=== PATIENT | female | born 1960 | race Caucasian/White ===

== ENCOUNTER 2018-09-17 21:12 | Emergency (ER) | payer OTHER ==
[~2018-09-17] VITALS: Ht 167.6 cm; Wt 59.0 kg
[2018-09-17 21:17] VITALS: BP 134/71
--- NOTE | 2018-09-17 21:22 | NUR ---
Pt ambulated to bed 7 with vss. Providing urine. Addendum: 09/17/18 at 2127 by [facility] Pt ambulated to bed 1 with vss. Providing urine.
--- NOTE | 2018-09-17 21:40 | NUR ---
PT BIB FAMILY C/O ABDOMINAL PAIN. PT STATES THAT SEVERE BURNING PAIN AT 10/10 IN MIDDLE OF ABDOMEN THAT RADIATES TO LOWER BACK. PT STATED SHE CURRENTLY HAS NO PAIN AT THIS MOMENT, BUT THAT THE PAIN COMES AND GOES. ABDOMEN IS FLAT, NON-TENDER TO TOUCH, HAS BOWEL SOUNDS ACTIVE X4 QUADRANTS. PT LAST BM WAS DIARRHEA YESTERDAY. PT HAD GASTRIC BYPAS IN 2008 RX: TORADOL
[2018-09-17] MEDS ORDERED: NACL 0.9% 500 ML IV ONE (21:49)
[2018-09-17] MEDS ORDERED: ONDANSETRON 4 MG/2 ML VIAL IVP ONE (21:50)
[2018-09-17 22:22] LABS: EOSINOPHILS % (AUTO) 0.2 % (0.0-4.0); HEMOGLOBIN 14.8 g/dL (12.0-16.0); LYMPHOCYTES # (AUTO) 0.9 K/uL (2.5-16.5); LYMPHOCYTES % (AUTO) 7.4 % (20.5-51.1); NEUTROPHILS # (AUTO) 10.9 K/uL (1.8-7.7); RED BLOOD CELL COUNT(AUTO) 5.04 MIL/uL (4.20-5.40); RED CELL DISTRIBUTION WIDTH 13.1 % (11.6-13.7); WHITE BLOOD COUNT (AUTO) 12.2 K/uL (4.8-10.8)
[2018-09-17 22:28] LABS: BASOPHILS % (AUTO) 0.4 % (0.0-2.0); HEMATOCRIT 45.9 % (36-48); MEAN CORPUSCULAR HEMOGLOBIN 29 pg (27-31); MEAN CORPUSCULAR HGB CONC 32 g/dL (33-37); MONOCYTES # (AUTO) 0.4 K/uL (0.8-1.0); MONOCYTES % (AUTO) 2.9 % (1.7-9.3); PLATELET COUNT (AUTO) 271 K/uL (140-450)
[2018-09-17 22:43] LABS: ALBUMIN 3.7 g/dL (3.4-5.0); ANION GAP 11.1 (8-16); CREATININE 0.9 mg/dL (0.6-1.3); POTASSIUM 4.1 mmol/L (3.5-5.1); TOTAL BILIRUBIN 0.4 mg/dL (0.0-1.0)
[2018-09-17 22:54] LABS: NEUTROPHILS % (AUTO) 89.1 % (42.2-75.2)
[2018-09-17 23:34] VITALS: BP 121/53
--- NOTE | 2018-09-17 23:34 | NUR ---
Patient discharged with v/s stable. Written and verbal after care instructions given and explained. Patient verbalized understanding. Ambulatory with steady gait. All questions addressed prior to discharge. Advised to follow up with PMD.
== END 2018-09-17 23:34 | disposition home or self-care (01) ==
LOC: MED 21:12
DX: K56.600 Partial intestinal obstruction, unspecified as to cause (principal); Z98.84 Bariatric surgery status
CPT/HCPCS: 36415; 74022; 80053; 81002; 83690; 85025; 96374; 99284; J2405; J7030

== ENCOUNTER 2019-11-12 23:01 | Inpatient (IN) | payer OTHER ==
[~2019-11-12] VITALS: Ht 162.6 cm; Wt 59.0 kg
[2019-11-12 23:20] VITALS: BP 127/61
--- NOTE | 2019-11-12 23:20 | NUR ---
TO BED # 06 VIA WHEELCHAIR
--- NOTE | 2019-11-12 23:40 | NUR ---
59 Y/O FEMALE C/O SOB X TODAY. LUNG SOUNDS ARE RONCHI ALL THORUGHOUT AND CRACKLES IN BILAT LOWER LOBE, TACHYPNEA. PT WAS REFERRED FROM URGENT CARE AND WAS GIVEN ANTIBIOITC , BREATHING TX, AND STEROIDS BEFORE COMING HERE. SPO2 95% 2L NC. USES WHEELCHAIR IN ER DUE TO FEELING WEAK, LETHARGIC. VSS. NO USE OF ACCESSORY MUSCLE. PRODUCTIVE MOIST COUGH. DOESNT USE O2 AT HOME. HASNT ATE ALL DAY. A& O X4. ALLERGIES: MORPHINE (ITCHINESS) PMH: EMPHYSEMA, COPD, SMOKING ( 1 PACK X COUPLE DAYS.)
[2019-11-12] MEDS ORDERED: ACETAMINOPHEN 325 MG TAB PO ONE (23:50)
[2019-11-13] MEDS ORDERED: NACL 0.9% 1,000 ML IV ONE ×2 (00:02→02:20)
[2019-11-13] MEDS ORDERED: LEVOFLOXACIN 750 MG/D5W PREMIX 150 ML IV ONE (00:05)
[2019-11-13] MEDS ORDERED: AZITHROMYCIN 1,000 MG in DEXTROSE 5% 500 ML IV ONE (00:05)
[2019-11-13 00:42] LABS: HEMATOCRIT 44.2 % (36-48); HEMOGLOBIN 14.3 g/dL (12.0-16.0); MEAN CORPUSCULAR HEMOGLOBIN 30 pg (27-31); MEAN CORPUSCULAR HGB CONC 32 g/dL (33-37); MEAN CORPUSCULAR VOLUME 91.8 fL (80-94); PLATELET COUNT (AUTO) 203 K/uL (140-450); RED BLOOD CELL COUNT(AUTO) 4.81 MIL/uL (4.20-5.40); RED CELL DISTRIBUTION WIDTH 13.9 % (11.6-13.7); WHITE BLOOD COUNT (AUTO) 13.3 K/uL (4.8-10.8)
[2019-11-13 01:00] LABS: LYMPHOCYTES % (MANUAL) 5 % (20-46); MONOCYTES % (MANUAL) 6 % (5-12)
[2019-11-13 01:02] LABS: ALBUMIN 2.9 g/dL (3.4-5.0); ANION GAP 11.3 (8-16); CARBON DIOXIDE 30.8 mmol/L (21-32); CREATININE 0.9 mg/dL (0.6-1.3); POTASSIUM 4.1 mmol/L (3.5-5.1); TOTAL BILIRUBIN 0.5 mg/dL (0.0-1.0)
[2019-11-13 01:09] LABS: APPEARANCE,URINE CLEAR (CLEAR); BILIRUBIN,URINE NEGATIVE (NEGATIVE); BLOOD, URINE NEGATIVE (NEGATIVE); COLOR,URINE YELLOW (YELLOW); LEUKOCYTE ESTERASE ,URINE NEGATIVE (NEGATIVE); NITRITE, URINE NEGATIVE (NEGATIVE); PH,URINE 7.5 (5.0-9.0); UGLUCOSE NEGATIVE (NEGATIVE)
--- NOTE | 2019-11-13 01:30 | NUR ---
EKG PERFORMED AT BEDSIDE
[2019-11-13] MEDS ORDERED: AZITHROMYCIN 500 MG INJ VIAL IV ONE (02:30)
--- NOTE | 2019-11-13 04:15 | NUR ---
ADMITTED A 59F FROM ER.CAME BY ZEINAB DUE TO SOB, COUGH AND FEVER. ON TELE MONITOR-SR. ON O22L/NC. 98% O2 SAT. . AWAKE,ALERT AND ORIENTED X4. WITH NO C/O ANY DISCOMFORT NOTED. HAS IV ACCESS ON THE RT AC G#20, CLEAR AND PATENT. ZITHROMAX STILL INFUSING. ORIENTED TO HOSPITAL ROUTINES. CALL LIGHT PLACED WITHIN EASY REACH. BED ON LOW POSITION. SIDE RAILS UP X2. FREQ ROUNDS NEEDED. SKIN INTACT UPON ASSESSMENT. AFEBRILE AT THIS TIME. MRSA SPECIMEN COLLECTED AND WILL SEND TO LAB. WILL FOLLOW UP ADMIT ORDERS AND CONTINUE TO MONITOR PT.
[2019-11-13 04:20] VITALS: BP 104/57
--- NOTE | 2019-11-13 04:20 | NUR ---
APatient will be admitted to care of DR. DAMIAN. Admited to TELE. Will go to room 120A. Belongings list completed. Report to WILL MCDERMOTT.
[2019-11-13] MEDS ORDERED: BUPR1FIL2 SL (04:32)
--- NOTE | 2019-11-13 06:15 | NUR ---
MADE ROUNDS. PT ASLEEP. DAUGHTER AT BEDSIDE. NO S/S OF ANY SOB AND DISCOMFORT NOTED.
--- NOTE | 2019-11-13 07:10 | NUR ---
PAGED DR. DAMIAN FOR ADDITIONAL ORDER AND FOR LACTIC ACID 2.7. WILL ENDORSED TO AM NURSE AWAITING FOR CALL BACK.
--- NOTE | 2019-11-13 07:25 | NUR ---
ENDORSED PT IN STABLE CONDITION TO AM NURSE.
--- NOTE | 2019-11-13 07:26 | NUR ---
RECEIVED REPORT FROM CNA INSTRUCTOR NURSE AT BEDSIDE FOR CONTINUITY OF CARE. PATIENT RESTING COMFORTABLY WITH EYES CLOSED. FLACC-0. RESPIRATIONS EVEN AND UNLABORED ON 2L O2 VIA NC. NO S/S OF SOB OR DISTRESS NOTED. UPDATED BOARD. IV SITE INTACT, ASYMPTOMATIC, INFUSING IVF WELL. SAFETY PRECAUTIONS IN PLACE, CALL LIGHT WITHIN REACH, WILL CONTINUE TO MONITOR PATIENT.
[2019-11-13 08:00] VITALS: BP 104/58
[2019-11-13] MEDS ORDERED: ZOLPIDEM 5 MG TAB PO PRN (10:50)
[2019-11-13] MEDS ORDERED: LORazepam 0.5 MG TAB PO PRN (10:50)
--- NOTE | 2019-11-13 10:50 | NUR ---
DR. DAMIAN IN TO SEE PATIENT. INFORMED HIM ABOUT LACTIC ACID LEVELS, NO NEW ORDERS. WILL CONTINUE TO MONITOR PATIENT.
[2019-11-13 12:00] VITALS: BP 117/58
[2019-11-13] MEDS: methylPREDNISolone SS 40 MG/ML VIAL IVP SCH ×2 (12:14→21:26)
--- NOTE | 2019-11-13 12:14 | NUR ---
ORDERED MEDICATION GIVEN. PATIENT TOLERATING IT WELL. NO COMPLAINTS AT THIS TIME. PT DENIES SOB AND PAIN. WILL CONTINUE TO MONITOR PATIENT.
[2019-11-13] MEDS: ALBUTEROL SULFATE/IPRATROPIU 3 ML SOL IH SCH ×2 (13:08→19:36)
--- NOTE | 2019-11-13 15:15 | NUR ---
DAUGHTER IN TO SEE PATIENT.
[2019-11-13 16:00] VITALS: BP 105/57
--- NOTE | 2019-11-13 19:35 | NUR ---
REPORT GIVEN TO PRESCHOOL ASSISTANT NURSE AT BEDSIDE FOR CONTINUITY OF CARE. PATIENT IN STABLE CONDITION
--- NOTE | 2019-11-13 19:36 | NUR ---
RECEIVED PT IN STABLE CONDITION FROM AM NURSE. AWAKE, ALERT AND ORIENTED X4. ON TELE MONITOR. AWAKE,ALERT AND ORIENTED X4. ON O22L/NC. WITH OCCASIONAL COUGH. FAMILY AT BEDSIDE. NO C/O ANY PAIN NOTED. HAS IV ACCESS ON THE RT AC G#20. AMBULATORY TO THE BATHROOM. INSTRUCTED TO CALL FOR ASSISTANCE. BED ON LOW POSITION. SIDE RAILS UP X2. CALL LIGHT WITHIN REASY REACH. WILL CONTINUE TO MONITOR.
--- NOTE | 2019-11-13 19:49 | NUR ---
RECEIVED PATIENT ON 2L NASAL CANNULA, PULSE OX SAT 93%. SCHEDULED BREATHING TREATMENT ADMINISTERED. TOLERATED TX WELL WITHOUT ADVERSE SIDE EFFECTS. PT MADE AWARE OF MEDICATION FREQUENCY. NO ACUTE RESPIRATORY DISTRESS NOTED AT THIS TIME. WILL CONTINUE TO MONITOR.
[2019-11-13 20:00] VITALS: BP 122/60
--- NOTE | 2019-11-13 21:00 | NUR ---
DUE MEDS GIVEN . NO C/O ANY DISCOMFORT NOTED.
[2019-11-13] MEDS ORDERED: AZITHROMYCIN 500 MG in DEXTROSE 5% 250 ML IV SCH (22:00)
[2019-11-13] MEDS ORDERED: LEVOFLOXACIN 500 MG/D5W PREMIX 100 ML IV SCH (23:00)
--- NOTE | 2019-11-13 23:00 | NUR ---
MADE ROUNDS. PT SLEEPING. NO DISTRESS NOTED. ON O22L./NC.
[2019-11-14] VITALS: BP 103/50
--- NOTE | 2019-11-14 01:00 | NUR ---
PT ASSISTED TO THE BATHROOM. NO SOB NOTED.
[2019-11-14] MEDS: ALBUTEROL SULFATE/IPRATROPIU 3 ML SOL IH SCH ×2 (01:58→07:35)
--- NOTE | 2019-11-14 02:09 | NUR ---
SCHEDULED BREATHING TREATMENT ADMINISTERED. TOLERATED TX WELL WITHOUT ADVERSE SIDE EFFECTS. NO ACUTE RESPIRATORY DISTRESS NOTED AT THIS TIME. WILL CONTINUE TO MONITOR.
[2019-11-14 04:00] VITALS: BP 105/58
--- NOTE | 2019-11-14 04:00 | NUR ---
VITAL SIGNS TAKEN. STABLE. 93% O2 SAT WITH O22L.NC. NO C/O DISCOMFORT.
[2019-11-14] MEDS: methylPREDNISolone SS 40 MG/ML VIAL IVP SCH ×2 (05:05→13:00)
--- NOTE | 2019-11-14 06:00 | NUR ---
MADE ROUNDS. PT ASLEEP. NO DISTRESS NOTED.
[2019-11-14 06:23] LABS: HEMATOCRIT 42.9 % (36-48); HEMOGLOBIN 14.4 g/dL (12.0-16.0); MEAN CORPUSCULAR HEMOGLOBIN 30 pg (27-31); MEAN CORPUSCULAR HGB CONC 34 g/dL (33-37); MEAN CORPUSCULAR VOLUME 89.8 fL (80-94); PLATELET COUNT (AUTO) 210 K/uL (140-450); RED BLOOD CELL COUNT(AUTO) 4.78 MIL/uL (4.20-5.40); RED CELL DISTRIBUTION WIDTH 13.7 % (11.6-13.7); WHITE BLOOD COUNT (AUTO) 20.8 K/uL (4.8-10.8)
[2019-11-14 06:58] LABS: ALBUMIN 2.3 g/dL (3.4-5.0); ANION GAP 12.2 (8-16); CREATININE 0.8 mg/dL (0.6-1.3); POTASSIUM 4.2 mmol/L (3.5-5.1); TOTAL BILIRUBIN 0.4 mg/dL (0.0-1.0)
[2019-11-14 07:09] LABS: LYMPHOCYTES % (MANUAL) 9 % (20-46); MONOCYTES % (MANUAL) 9 % (5-12)
--- NOTE | 2019-11-14 07:15 | NUR ---
ENDORSED PT IN STABLE CONDITION TO AM NURSE.
--- NOTE | 2019-11-14 07:20 | NUR ---
RECEIVED BEDSIDE REPORT FROM NIGHTSHIFT NURSE. PT RESTING IN BED UPON ARRIVAL. ABLE TO MAKE NEEDS KNOWN. RESPIRATIONS EVEN AND UNLABORED WITH NO SOB OR RESPIRATORY DISTRESS. SKIN WARM AND DRY TO TOUCH. IV SITE IN RAC 20G IS CLEAN, DRY, AND INTACT. SAFETY MEASURES IN PLACE. WILL CONTINUE TO MONITOR
[2019-11-14 08:00] VITALS: BP 118/54
--- NOTE | 2019-11-14 08:30 | NUR ---
PAGED DR. DAMIAN ABOUT PT LACTIC ACID BEING 2.7. SAFETY MEASURES IN PLACE. WILL CONTINUE TO MONITOR.
--- NOTE | 2019-11-14 08:57 | NUR ---
PATIENT HAS BEEN SCREENED AND CATEGORIZED MODERATE NUTRITION RISK. PATIENT WILL BE SEEN WITHIN 3-5 DAYS OF ADMISSION. 11/15/19 11/17/[address]
[2019-11-14] MEDS ORDERED: NICOTINE TRANSD SYS 21 MG/24 HR PATCH TD SCH (09:00)
--- NOTE | 2019-11-14 09:18 | NUR ---
ADMINISTERED SCHED MED PRESCRIBED PER MD ORDER. PT TOLERATED WELL. MEDICATION EDUCATION PERFORMED. PT VERBALIZED UNDERSTANDING. SAFETY MEASURES IN PLACE. WILL CONTINUE TO MONITOR
--- NOTE | 2019-11-14 11:26 | NUR ---
Surgical Aides Teacher Note: Basic Screen: Yes High Risk DC Screen [place]: JOSÉ LUIS CUMMINGS Loyal Relationship: DAUGHTER Pre-Admission Living Arrangements: Lives with Other Prior ADL Independent Current Home Health Name/Tel: N/A Current DME/02 Name/Tel: N/A Current Hospice Name/Tel: N/A Current Dialysis Name/Tel: N/A Healthcare Decision Maker: Patient Advance Directive No - REFUSED Physician Orders for Life Sustaining Treatment Form No Patient/Family Have Educational Needs No Information Taught: Advance Directive Community Resources Person Taught: Patient Teaching Tools: Verbal Factors Affecting Learning: None Participation Level: Refused Evaluation: Verbalizes Understanding Needs Additional Education: No Discipline: Case Mgt/Social Svcs Tentative Discharge Plan/Destination: No Needs Identified Will require assistance post discharge: No Referred to Educational Director: No Tentative Discharge Plan Summary: Patient is a 59-year-old female admitted for pneumonia and sepsis. Patient has PMHX of COPD and suboxone use. Patient was admitted from home where she lives with her sno, daughter, and grandchildren. SW met with patient at bedside to verify demographics. Patient stated that she now lives at [address] [place] [address]. Patient reports no history of mental health and past history of norco abuse. SW offered substance abuse resources but patient refused.Patient's tentative discharge plan is to return home. No further needs identified. Signature: ZEINAB Clemente Date: Nov 14, 2019 Time: 11:26
--- NOTE | 2019-11-14 12:15 | NUR ---
PT IS AWARE OF DISCHARGE ORDER AND WOULD LIKE TO GO HOME BEFORE 3PM. SAFETY MEASURES IN PLACE. WILL CONTINUE TO MONITOR.
[2019-11-14 13:09] VITALS: BP 118/54
--- NOTE | 2019-11-14 14:15 | NUR ---
WENT OVER DC INSTRUCTIONS WITH PT. PT SIGNED APPROPRIATE DOCUMENTS. INSTRUCTED PT TO VISIT ED FOR ANY SIGNS OF DISTRESS. PT VERBALIZED UNDERSTANDING. PT REFUSED FLU VACCINE AND DOES NOT QUALIFY FOR PNA VACCINE. TELE MONITOR REMOVED, ID BAND REMOVED, AND INTACT IV CANNULA REMOVED. NO PRESCRIPTION OR CHANGE IN MEDS. PT GATHERED OWN BELONGINGS AND GOT DRESSED IN OWN CLOTHES. PT ESCORTED TO PRIVATE VEHICLE FOR HER TO RETURN HOME. PT IS STABLE.
--- NOTE | 2019-11-14 14:32 | NUR ---
DC PLANNING CALLED [facility] SPOKE WITH STORMY REGARDING THE PULMONARY FOLLOW UP , SINCE OFFICE IS CLOSED TODAY WILL F/U TOMORROW AND WILL CALL PATIENT .
== END 2019-11-14 14:18 | disposition home or self-care (01) | DRG 720 ==
LOC: MED 23:01 → MTU 11-13 03:26
PROVIDERS: ADMIT Internal Medicine Pulmonary Disease; ATTEND Internal Medicine Pulmonary Disease
DX: A41.9 Sepsis, unspecified organism (principal); J18.9 Pneumonia, unspecified organism; E44.0 Moderate protein-calorie malnutrition; J44.0 Chronic obstructive pulmonary disease with (acute) lower respiratory infection; J44.1 Chronic obstructive pulmonary disease with (acute) exacerbation; F17.200 Nicotine dependence, unspecified, uncomplicated; Z68.22 Body mass index [BMI] 22.0-22.9, adult; Z79.899 Other long term (current) drug therapy; Z90.710 Acquired absence of both cervix and uterus; Z98.84 Bariatric surgery status
CPT/HCPCS: 36415; 36600; 71045; 80053; 81003; 82803; 83605; 85025; 87081; 87086; 93005; 94640; 96361; 96365; 96366; 96367; 99291; J0456; J1956; J2920; J7030; J7060; J7620; Q0092

== ENCOUNTER 2021-05-07 20:03 | Emergency (ER) | payer OTHER ==
[~2021-05-07] VITALS: Ht 167.6 cm; Wt 54.4 kg
[~2021-05-07 20:03] MED LIST: BUPR1FIL2 SL
[2021-05-07 20:25] VITALS: BP 157/82
--- NOTE | 2021-05-07 20:25 | NUR ---
TO BED AMBULATORY
[2021-05-07 20:40] VITALS: BP 157/82
--- NOTE | 2021-05-07 23:44 | NUR ---
patient ambulated to the bathroom
--- NOTE | 2021-05-07 23:46 | NUR ---
patient to lobby
== END 2021-05-08 | disposition home or self-care (01) ==
LOC: MED 20:03
DX: S06.0X9A Concussion with loss of consciousness of unspecified duration, initial encounter (principal); J44.9 Chronic obstructive pulmonary disease, unspecified; Z79.899 Other long term (current) drug therapy; W01.198A Fall on same level from slipping, tripping and stumbling with subsequent striking against other object, initial encounter; Y93.89 Activity, other specified; Y92.89 Other specified places as the place of occurrence of the external cause; Y99.8 Other external cause status
CPT/HCPCS: 70450; 99284

== ENCOUNTER 2022-09-26 09:14 | Emergency (ER) | payer OTHER ==
[~2022-09-26] VITALS: Ht 170.2 cm; Wt 79.4 kg
--- NOTE | 2022-09-26 09:15 | NUR ---
PATIENT BIBA TO BED 8
[2022-09-26 09:19] VITALS: BP 95/72
[2022-09-26] MEDS ORDERED: cefTRIAXone 1,000 MG in DEXT 5% MINI-BAG PLUS 50 ML IV ONE (09:20)
--- NOTE | 2022-09-26 09:50 | NUR ---
RAD AT BEDSIDE
--- NOTE | 2022-09-26 09:58 | NUR ---
Patient being evaluated by physician at bedside.
[2022-09-26 09:59] LABS: BASOPHILS # (AUTO) 0.1 K/uL (0.00-0.22); BASOPHILS % (AUTO) 0.6 % (0.0-2.0); EOSINOPHILS % (AUTO) 0.5 % (0.0-4.0); HEMOGLOBIN 15.2 g/dL (12.0-16.0); LYMPHOCYTES # (AUTO) 0.5 K/uL (2.5-16.5); LYMPHOCYTES % (AUTO) 5.3 % (20.5-51.1); MEAN CORPUSCULAR HEMOGLOBIN 28 pg (27-31); MEAN CORPUSCULAR HGB CONC 32 g/dL (33-37); MEAN CORPUSCULAR VOLUME 87.9 fL (80-94); MONOCYTES # (AUTO) 0.6 K/uL (0.8-1.0); MONOCYTES % (AUTO) 5.9 % (1.7-9.3); NEUTROPHILS # (AUTO) 8.3 K/uL (1.8-7.7); NEUTROPHILS % (AUTO) 87.7 % (42.2-75.2); PLATELET COUNT (AUTO) 255 K/uL (140-450); RED BLOOD CELL COUNT(AUTO) 5.46 MIL/uL (4.20-5.40); WHITE BLOOD COUNT (AUTO) 9.5 K/uL (4.8-10.8)
[2022-09-26] MEDS ORDERED: cefTRIAXone 1,000 MG VIAL ONE (10:08)
[2022-09-26 10:11] LABS: ALBUMIN 3.3 g/dL (3.4-5.0); ANION GAP 7.9 (8-16); CARBON DIOXIDE 38.9 mmol/L (21-32); CREATININE 0.7 mg/dL (0.6-1.3); POTASSIUM 4.8 mmol/L (3.5-5.1); TOTAL BILIRUBIN 0.2 mg/dL (0.0-1.0)
--- NOTE | 2022-09-26 10:31 | NUR ---
PTS DAUGHTER AT BEDSIDE PER DR VALENZUELA.
[2022-09-26] MEDS ORDERED: ALBU0.0912 INH (10:58)
[2022-09-26] MEDS ORDERED: BUDE180P IH (10:58)
[2022-09-26] MEDS ORDERED: BUPR1FIL2 SL (10:58)
[2022-09-26] MEDS ORDERED: TENA50TA PO (10:58)
[2022-09-26] MEDS ORDERED: VITB12 PO (10:58)
[2022-09-26] MEDS ORDERED: VITA-16 PO (10:58)
[2022-09-26] MEDS ORDERED: OMEP20EC11 PO (10:58)
[2022-09-26] MEDS ORDERED: methylPREDNISolone SS 125 MG/2 ML VIAL IVP ONE (11:05)
[2022-09-26] MEDS ORDERED: PRED20TA5 PO (13:09)
--- NOTE | 2022-09-26 15:00 | NUR ---
PT MOVED TO CHAIR D
--- NOTE | 2022-09-26 15:05 | NUR ---
IV removed, catheter intact and site benign. Applied folded 4x4 gauze and tape to stop bleeding.
[2022-09-26 16:00] VITALS: BP 135/63
--- NOTE | 2022-09-26 16:00 | NUR ---
Patient discharged with v/s stable. Written and verbal after care instructions ABOUT HYPOXIA AND COPD given and explained. Patient alert, oriented and verbalized understanding of instructions. Ambulatory with steady gait. All questions addressed prior to discharge. ID band removed. Patient advised to follow up with PMD. Rx of PREDNISONE given. Patient educated on indication of medication including possible reaction and side effects. Opportunity to ask questions provided and answered. PT D/C WITH HOME OXYGEN. OKAY TO DISCHARGE PER DR VALENZUELA.
== END 2022-09-26 16:00 | disposition home or self-care (01) ==
LOC: MED 09:14
DX: J44.1 Chronic obstructive pulmonary disease with (acute) exacerbation (principal); Z20.822 Contact with and (suspected) exposure to COVID-19; R09.02 Hypoxemia; F17.200 Nicotine dependence, unspecified, uncomplicated; Z88.5 Allergy status to narcotic agent; Z79.899 Other long term (current) drug therapy
CPT/HCPCS: 36415; 71045; 80053; 83605; 83880; 84484; 85025; 87040; 87426; 87804; 93005; 96365; 96375; 99285; J0696; J2930

== ENCOUNTER 2022-09-27 12:54 | Inpatient (IN) | payer OTHER ==
[~2022-09-27] VITALS: Ht 160 cm; Wt 56.7 kg
[~2022-09-27 12:54] MED LIST changes: +ALBU0.0912 INH; +BUDE180P IH; +OMEP20EC11 PO; +PRED20TA5 PO; +TENA50TA PO; +VITA-16 PO; +VITB12 PO
[2022-09-27] MEDS ORDERED: NACL 0.9% 1,500 ML IV SCH (13:05)
[2022-09-27] MEDS ORDERED: MAG SULF 2000 MG/WATER PREMIX 50 ML IV ONE (13:05)
[2022-09-27] MEDS ORDERED: IPRATROPIUM 0.02% 0.5 MG/2.5 ML NEBU INH ONE (13:05)
[2022-09-27] MEDS ORDERED: ALBUTEROL 0.083% 2.5 MG/3 ML NEBU INH ONE (13:05)
[2022-09-27] MEDS ORDERED: cefTRIAXone 1,000 MG in DEXT 5% MINI-BAG PLUS 50 ML IV ONE (13:05)
[2022-09-27] MEDS ORDERED: methylPREDNISolone SS 125 MG/2 ML VIAL IVP ONE (13:05)
[2022-09-27 13:17] VITALS: BP 147/70
--- NOTE | 2022-09-27 13:17 | NUR ---
O2 DROPPED TO 58% RA DR CUMMINS AT BEDSIDE FOR EVAL, RT CALLED TO BEDSIDE
--- NOTE | 2022-09-27 13:36 | NUR ---
X-Ray at bedside.
[2022-09-27] MEDS ORDERED: cefTRIAXone 1,000 MG VIAL ONE (13:38)
[2022-09-27 13:48] LABS: APPEARANCE,URINE CLEAR (CLEAR); BILIRUBIN,URINE NEGATIVE (NEGATIVE); BLOOD, URINE NEGATIVE (NEGATIVE); COLOR,URINE YELLOW (YELLOW); LEUKOCYTE ESTERASE ,URINE 1+ (NEGATIVE); NITRITE, URINE NEGATIVE (NEGATIVE); UGLUCOSE NEGATIVE (NEGATIVE)
[2022-09-27 13:52] LABS: BASOPHILS % (AUTO) 0.2 % (0.0-2.0); HEMATOCRIT 49.7 % (36-48); HEMOGLOBIN 15.3 g/dL (12.0-16.0); LYMPHOCYTES # (AUTO) 0.5 K/uL (2.5-16.5); LYMPHOCYTES % (AUTO) 6.2 % (20.5-51.1); MEAN CORPUSCULAR HEMOGLOBIN 27 pg (27-31); MEAN CORPUSCULAR VOLUME 87.7 fL (80-94); MONOCYTES # (AUTO) 0.4 K/uL (0.8-1.0); MONOCYTES % (AUTO) 4.6 % (1.7-9.3); NEUTROPHILS # (AUTO) 7.7 K/uL (1.8-7.7); PLATELET COUNT (AUTO) 248 K/uL (140-450); RED BLOOD CELL COUNT(AUTO) 5.67 MIL/uL (4.20-5.40); RED CELL DISTRIBUTION WIDTH 15.4 % (11.6-13.7); WHITE BLOOD COUNT (AUTO) 8.6 K/uL (4.8-10.8)
[2022-09-27 13:53] LABS: ANION GAP 3.1 (8-16); CREATININE 0.7 mg/dL (0.6-1.3); POTASSIUM 5.8 mmol/L (3.5-5.1); TOTAL BILIRUBIN 0.3 mg/dL (0.0-1.0)
[2022-09-27 13:55] LABS: CARBON DIOXIDE 42.7 mmol/L (21-32)
--- NOTE | 2022-09-27 14:06 | NUR ---
62F BIBA from home with c/o of SOB today. Pt brought in by ambulance yesterday for SOB, pt refused admission to hospital, stated daughter had access to at home oxygen system. Pt reports running out of oxygen and became short of breath today. Per EMS pt was satting at 58% on 2LMP, received albuterol tx, satting at 86% on 2LMP after tx. Pt denies pain, cough, or any other symptoms. Pt changed into gown, placed on bedside monitor, Dr. Nuñez and RT made aware of pt status upon arrival.
[2022-09-27] MEDS ORDERED: LORazepam 1 MG TAB PO PRN (14:10)
[2022-09-27] MEDS ORDERED: ACETAMINOPHEN 325 MG TAB PO PRN (14:10)
[2022-09-27] MEDS ORDERED: HYDROcodone/APAP 5/325 MG 1 TAB TAB PO PRN (14:10)
[2022-09-27] MEDS ORDERED: ALBUTEROL SULFATE/IPRATROPIU 3 ML SOL IH PRN (14:10)
[2022-09-27] MEDS ORDERED: ONDANSETRON 4 MG/2 ML VIAL IVP PRN (14:10)
[2022-09-27 14:14] LABS: RBC,URINE 0-5 /HPF (0-5); TRICHOMONAS,URINE None Seen /HPF (None Seen); WBC,URINE 0-5 /HPF (0-5); YEAST,URINE None Seen /HPF (None Seen)
[2022-09-27 14:27] LABS: MEAN CORPUSCULAR HGB CONC 31 g/dL (33-37)
--- NOTE | 2022-09-27 19:40 | NUR ---
ASSUMED CARE OF PT . PT IN POSITION OF COMFORT. DENIES ANY NEEDS OR PAIN AT THIS TIME. PT IN POSITION OF COMFORT. VSS. AWAITING BED ASSIGNMENT. PT IS ADMITTED. WILL CONTINUE TO MONITOR.
[2022-09-27] MEDS: BUDESONIDE 0.5 MG/2 ML NEBU INH SCH (19:45)
--- NOTE | 2022-09-27 20:00 | NUR ---
Note poonam in EDM - 09/28/22 at 0556 by [email or web address] ASSUMED CARE OF PT AT THIS TIME. PT IN POSITION OF COMFORT. DENIES ANY PAIN AT THIS TIME. PROVIDED WATER AND CRACKERS TO PT. UPDATED PT ON POC WITH FULL RETURNED VERBAL UNDERSTANDING. VSS
[2022-09-27] MEDS: methylPREDNISolone SS 40 MG/ML VIAL IVP SCH (21:00)
[2022-09-27] MEDS ORDERED: BUDESONIDE IH SCH (21:00)
--- NOTE | 2022-09-27 22:40 | NUR ---
PT MEDICATED PER ORDERS AT THIS TIME.
[2022-09-27] MEDS: ZOLPIDEM 5 MG TAB PO PRN (22:46)
--- NOTE | 2022-09-28 01:00 | NUR ---
Patient appears to be resting comfortably in bed. Vital Signs within normal limits. Respirations even and unlabored.
--- NOTE | 2022-09-28 01:30 | NUR ---
Note poonam in ED - 09/28/22 at 0558 by [email or web address] SPOKE WITH JONATHAN BAEZA FOR PUBLIC SERVICE TO PT HOME. PT IS DISCHARGED AND UNABLE TO REMEMBER PHONE NUMBER BUT ADDRESS GIVEN. SPOKE WITH DISPATCHER WILL SEND OFFICER TO REACH [place], HER SON OR BROTHER TO PICK PT UP.
--- NOTE | 2022-09-28 03:00 | NUR ---
Patient appears to be resting comfortably in bed. Vital Signs within normal limits. Respirations even and unlabored.
[2022-09-28] MEDS: methylPREDNISolone SS 40 MG/ML VIAL IVP SCH ×3 (05:00→20:22)
--- NOTE | 2022-09-28 05:00 | NUR ---
Patient appears to be resting comfortably in bed. Vital Signs within normal limits. Respirations even and unlabored. Denies any needs or pain at this time. Bed assignment given. Will call report at 0615 per RN receiving.
--- NOTE | 2022-09-28 06:20 | NUR ---
ATTEMPTED TO GIVE REPORT. RN NEEDS 5 MORE MINUTES.
--- NOTE | 2022-09-28 06:35 | NUR ---
REPORT CALLED TO NICOLAS SOLIS WITH FULL RETURNED VERBAL UNDERSTANDING. PT GOING TO 106B
--- NOTE | 2022-09-28 06:40 | NUR ---
Patient will be admitted to [facility]. Admited to TELEMETRY. Will go to [facility] Belongings list completed. Report to NICOLAS SOLIS.
--- NOTE | 2022-09-28 06:55 | NUR ---
RECEIVED REPORT FROM ER NURSE PRISCILLA FOR CONTINUITY OF CARE. PATIENT IS A&O X4. PATIENT IS ON 6L NC, BREATHING IS NORMAL WITH SYMMETRICAL RISE AND FALL OF CHEST. IV IS A 20G LFA, RUNNING NO FLUIDS AT THIS TIME (SALINE LOCKED). ADMISSION VITALS WERE: BP 156/72, HR 70, TEMP 98.3, O2 97%, RR 18. PATIENT WAS ABLE TO AMBULATE TO THE BATHROOM, GATE WAS SLIGHTLY UNSTEADY. WILL ENDORSE CARE TO DAY SHIFT NURSE.
--- NOTE | 2022-09-28 07:30 | NUR ---
ENDORSED CARE OF PATIENT TO DAY SHIFT NURSE ADZE FOR CONTINUITY OF CARE. PATIENT IS STABLE.
[2022-09-28] MEDS: BUDESONIDE 0.5 MG/2 ML NEBU INH SCH ×2 (08:10→19:50)
[2022-09-28] MEDS ORDERED: BUPRENORPHINE HCL SL SCH (09:00)
[2022-09-28] MEDS ORDERED: [UNRECOGNIZED DRUG - OTHER] SL SCH (09:00)
[2022-09-28] MEDS ORDERED: NALOXONE HCL SL SCH (09:00)
--- NOTE | 2022-09-28 09:06 | NUR ---
PATIENT HAS BEEN SCREENED AND CATEGORIZED MODERATE NUTRITION RISK. PATIENT WILL BE SEEN WITHIN 5 DAYS OF ADMISSION. 09/27/22-10/02/[address]
[2022-09-28] MEDS: NICOTINE TRANSD SYS 14 MG/24 HR PATCH TD SCH (10:07)
[2022-09-28] MEDS: AZITHROMYCIN 250 MG TAB PO SCH (10:07)
[2022-09-28] MEDS: DOCUSATE SODIUM 100 MG GELCAP PO SCH (10:07)
[2022-09-28 14:29] LABS: BASOPHILS % (AUTO) 0.2 % (0.0-2.0); HEMATOCRIT 44.8 % (36-48); HEMOGLOBIN 13.9 g/dL (12.0-16.0); LYMPHOCYTES # (AUTO) 0.6 K/uL (2.5-16.5); LYMPHOCYTES % (AUTO) 5.1 % (20.5-51.1); MEAN CORPUSCULAR HEMOGLOBIN 27 pg (27-31); MEAN CORPUSCULAR HGB CONC 31 g/dL (33-37); MEAN CORPUSCULAR VOLUME 87.2 fL (80-94); MONOCYTES # (AUTO) 0.9 K/uL (0.8-1.0); MONOCYTES % (AUTO) 8.3 % (1.7-9.3); NEUTROPHILS # (AUTO) 9.5 K/uL (1.8-7.7); NEUTROPHILS % (AUTO) 86.4 % (42.2-75.2); PLATELET COUNT (AUTO) 247 K/uL (140-450); RED BLOOD CELL COUNT(AUTO) 5.13 MIL/uL (4.20-5.40); RED CELL DISTRIBUTION WIDTH 15.8 % (11.6-13.7)
[2022-09-28] MEDS: ALBUTEROL SULFATE/IPRATROPIU 3 ML SOL IH SCH ×3 (15:04→23:00)
[2022-09-28 16:00] VITALS: BP 136/67
--- NOTE | 2022-09-28 19:04 | NUR ---
PATIENT REMAINS STABLE THROUGHOUT SHIFT. CONTINUE ON O2 @4LPM VIA NC. TOLERATING WELL.
--- NOTE | 2022-09-28 19:49 | NUR ---
PATIENT AWAKE ALERT ORIENTED IN BED RESTING COMFORTABLY WITH O2 AT 4L NC TOLERATING WELL SATING 92%. NO SOB. RESPIRATION REGULAR NON LABORED. NO COMPLAINTS OF PAIN. HEAD OF BED ELEVATED. ALL SAFETY PRECAUTIONS ARE IN PLACE. CALL LIGHT WITHIN REACH. VISITOR AT BEDSIDE.
[2022-09-28 20:00] VITALS: BP 115/52
--- NOTE | 2022-09-28 20:01 | NUR ---
RECEIVED PT ON 4L NC. PT AWAKE ALERT WITH NO RESP DISTRESS. PT RECEIVED BOTH TX WITH NO ADVERSE REACTION. BS COARSE WITH EXP WHEEZE.
--- NOTE | 2022-09-28 20:22 | NUR ---
ALL SCHEDULED MEDICATIONS ADMINISTERED.
[2022-09-28] MEDS: ZOLPIDEM 5 MG TAB PO PRN (20:23)
[2022-09-28 21:01] LABS: BARBITURATE, URINE NEGATIVE ng/ml (NEG <=200); BENZODIAZEPINE, URINE POSITIVE ng/mL (NEG <=200); CANNABINOID, URINE NEGATIVE ng/mL (NEG <=50); COCAINE, URINE NEGATIVE ng/mL (NEG <=300); OPIATE, URINE NEGATIVE ng/mL (NEG <=2000); PHENCYCLIDINE SCREEN,URINE NEGATIVE ng/mL (NEG <=25)
[2022-09-29] VITALS: BP 119/59
[2022-09-29] MEDS: ALBUTEROL SULFATE/IPRATROPIU 3 ML SOL IH SCH ×6 (03:27→23:06)
[2022-09-29 04:00] VITALS: BP 125/51
[2022-09-29] MEDS: methylPREDNISolone SS 40 MG/ML VIAL IVP SCH ×3 (04:48→20:24)
--- NOTE | 2022-09-29 07:11 | NUR ---
GAVE REPORT TO NURSE ADZE FOR CONTINUITY OF CARE. PATIENT STABLE. ALL NEEDS MET DURING THE SHIFT.
[2022-09-29 07:23] LABS: BASOPHILS % (AUTO) 0.1 % (0.0-2.0); HEMATOCRIT 41.3 % (36-48); LYMPHOCYTES # (AUTO) 0.5 K/uL (2.5-16.5); MEAN CORPUSCULAR HEMOGLOBIN 27 pg (27-31); MEAN CORPUSCULAR HGB CONC 31 g/dL (33-37); MEAN CORPUSCULAR VOLUME 86.5 fL (80-94); MONOCYTES # (AUTO) 0.7 K/uL (0.8-1.0); MONOCYTES % (AUTO) 7.8 % (1.7-9.3); NEUTROPHILS # (AUTO) 7.6 K/uL (1.8-7.7); NEUTROPHILS % (AUTO) 86.1 % (42.2-75.2); PLATELET COUNT (AUTO) 232 K/uL (140-450); RED BLOOD CELL COUNT(AUTO) 4.78 MIL/uL (4.20-5.40); RED CELL DISTRIBUTION WIDTH 15.6 % (11.6-13.7); WHITE BLOOD COUNT (AUTO) 8.8 K/uL (4.8-10.8)
[2022-09-29 07:25] LABS: ALBUMIN 2.4 g/dL (3.4-5.0); ANION GAP 5.1 (8-16); CREATININE 0.5 mg/dL (0.6-1.3); POTASSIUM 4.6 mmol/L (3.5-5.1); TOTAL BILIRUBIN 0.2 mg/dL (0.0-1.0)
[2022-09-29] MEDS: BUDESONIDE 0.5 MG/2 ML NEBU INH SCH ×2 (07:36→18:49)
[2022-09-29 07:43] LABS: CARBON DIOXIDE 43.5 mmol/L (21-32)
[2022-09-29 08:00] VITALS: BP 132/60
[2022-09-29] MEDS: AZITHROMYCIN 250 MG TAB PO SCH (09:29)
[2022-09-29] MEDS: DOCUSATE SODIUM 100 MG GELCAP PO SCH (09:29)
[2022-09-29] MEDS: NICOTINE TRANSD SYS 14 MG/24 HR PATCH TD SCH (09:29)
[2022-09-29 12:00] VITALS: BP 127/87
[2022-09-29] MEDS ORDERED: PRED20TA5 PO (13:13)
[2022-09-29] MEDS ORDERED: AZIT250T11 PO (13:13)
[2022-09-29 16:00] VITALS: BP 127/87
--- NOTE | 2022-09-29 18:43 | NUR ---
PATIENT REMAINS STABLE THROUGHOUT SHIFT. DR. RAMOS SEEN AND EXAMINED THE PATIENT. DR. RAMOS MADE AWARE THAT PATIENT DESATS TO 84% ON RA AND NEED O2 CONTINOUSLY. PATIENT DISCHARGE IS HOLD UNTIL HOME O2 IS BEING ARRANGED. WILL FOLLOW UP TOMORROW WITH GYMNASTIC TEACHER.
[2022-09-29 20:00] VITALS: BP 125/68
[2022-09-29] MEDS: ZOLPIDEM 5 MG TAB PO PRN (20:23)
--- NOTE | 2022-09-29 20:23 | NUR ---
SCHEDULED MEDICATIONS DUE ADMINISTERED. WELL TOLERATED.
--- NOTE | 2022-09-29 23:50 | NUR ---
CHECKED ON PATIENT. PT SLEEPING ON HIGH FOWLERS POSITION WITH O2 AT 4L NC. NO S/S OF RESPIRATORY DISTRESS. RESPIRATION EVEN UNLABORED. SAFETY MEASURES ARE IN PLACE. CALL LIGHT WITHIN REACH.
[2022-09-30] VITALS: BP 120/58
[2022-09-30] MEDS: ALBUTEROL SULFATE/IPRATROPIU 3 ML SOL IH SCH ×6 (02:19→23:00)
[2022-09-30 04:00] VITALS: BP 116/68
[2022-09-30] MEDS: methylPREDNISolone SS 40 MG/ML VIAL IVP SCH ×3 (04:54→21:09)
--- NOTE | 2022-09-30 07:15 | NUR ---
GAVE REPORT TO NURSE ADZE FOR CONTINUITY OF CARE. PATIENT STABLE.
[2022-09-30 07:28] LABS: ALBUMIN 2.6 g/dL (3.4-5.0); ANION GAP 7.1 (8-16); CREATININE 0.5 mg/dL (0.6-1.3); POTASSIUM 4.8 mmol/L (3.5-5.1); TOTAL BILIRUBIN 0.3 mg/dL (0.0-1.0)
[2022-09-30 07:30] LABS: CARBON DIOXIDE 42.7 mmol/L (21-32)
[2022-09-30] MEDS: BUDESONIDE 0.5 MG/2 ML NEBU INH SCH ×2 (07:30→19:30)
[2022-09-30 07:32] LABS: BASOPHILS % (AUTO) 0.2 % (0.0-2.0); HEMATOCRIT 42.3 % (36-48); HEMOGLOBIN 13.4 g/dL (12.0-16.0); LYMPHOCYTES # (AUTO) 0.7 K/uL (2.5-16.5); LYMPHOCYTES % (AUTO) 7.9 % (20.5-51.1); MEAN CORPUSCULAR HEMOGLOBIN 27 pg (27-31); MEAN CORPUSCULAR HGB CONC 32 g/dL (33-37); MEAN CORPUSCULAR VOLUME 86.5 fL (80-94); MONOCYTES # (AUTO) 0.8 K/uL (0.8-1.0); MONOCYTES % (AUTO) 9.5 % (1.7-9.3); NEUTROPHILS # (AUTO) 7.1 K/uL (1.8-7.7); NEUTROPHILS % (AUTO) 82.4 % (42.2-75.2); PLATELET COUNT (AUTO) 245 K/uL (140-450); RED BLOOD CELL COUNT(AUTO) 4.89 MIL/uL (4.20-5.40); RED CELL DISTRIBUTION WIDTH 15.4 % (11.6-13.7); WHITE BLOOD COUNT (AUTO) 8.6 K/uL (4.8-10.8)
[2022-09-30 08:00] VITALS: BP 135/69
[2022-09-30] MEDS: DOCUSATE SODIUM 100 MG GELCAP PO SCH (08:42)
[2022-09-30] MEDS: AZITHROMYCIN 250 MG TAB PO SCH (08:42)
[2022-09-30] MEDS: NICOTINE TRANSD SYS 14 MG/24 HR PATCH TD SCH (08:43)
[2022-09-30 12:00] VITALS: BP 144/71
[2022-09-30 16:00] VITALS: BP 131/71
--- NOTE | 2022-09-30 16:35 | NUR ---
DC PLANNING SW MET WITH PT AT BEDSIDE TO COMPLETE ASSESSMENT. PT REPORTS RESIDING IN A MOBILE HOME WITH HER DAUGHTER AND GRANDDAUGHTER, AT [address] [facility]. [address] [address]. PT IDENTIFIED JOSÉ LUIS CUMMINGS, DAUGHTER, EMERGENCY CONTACT. PT DENIED AD IN PLACE AND ACCEPTED AD OFFERED BY ANNELISE. PT REPORTS MEETING WITH PCP REGULARLY, LAST VISIT; JUL 19'. PT REPORTS AN UPCOMING PCP APPT ON OCT 08. SW SPOKE TO PT ABOUT IMPORTANCE OF FOLLOW UP CARE, PT RECEPTIVE AND PROVIDED SW WITH PERMISSION TO SCHEDULE FOLLOW UP APPT WITH PCP. PT REPORTS MEDICATION COMPLIANCE AND REPORTS RECEIVING MEDICATION FROM [facility] ON [address] IN [place], WHEN NEEDED. PT DENIES MH HX. PT REPORTS SUBSTANCE USE HX, SUBSTANCE OF USE, NORCO. PT REPORTS BEING SOBER FOR 2 YRS. PT REPORTS SUBOXONE USE OF 1/4 PILL, 2X A DAY. PT REPORTS CIGARETTE USE AND REPORTS SHES WORKING WITH PCP IN CIGARETTE CESSATION. PT DENIES HX OF DIABETES, DIALYSIS, SNF, HH. PT REPORTS DC PLAN IS TO RETURN HOME WITH DAUGHTER PROVIDING TRANSPORTATION, WHEN STABLE. PT CURRENTLY WAITING ON OXYGEN TO BE DELIVERED TO HOSPITAL. Addendum: 09/30/22 at 1637 by Andrew CHRISTENSEN Amended: Links added. Addendum: 10/03/22 at 1024 by Andrew Garcia ANNELISE OUTREACHED TO PATIENTS PCP OFFICE AT [phone]. SPOKE WITH ISAMAR, APPT WAS SCHEDUL[facility] 10/06/22 [facility] 9[facility]00AM [facility] ANNELISE CALLED PATIENT, HOWEVER, NO ANSWER. ANNELISE LEFT MESSAGE WITH APPT DETAILS THAT INCLUDED DATE, TIME, ADDRESS, PHONE NUMBER AND
[2022-09-30 20:00] VITALS: BP 128/69
--- NOTE | 2022-09-30 20:05 | NUR ---
PATIENT AWAKE ALERT ORIENTED IN BED RESTING WITH O2 AT 2L NC SATING 92%. NO DISTRESS. BREATHING REGULAR NON LABORED. NO COMPLAINTS OF PAIN. IV ACCESS ON THE LEFT FOREARM SALINE LOCK. CALL LIGHT WITHIN REACH. SAFETY MEASURES IN PLACE. PT ABLE TO WALK TO THE RESTROOM.
[2022-09-30] MEDS: ZOLPIDEM 5 MG TAB PO PRN (21:09)
--- NOTE | 2022-09-30 21:09 | NUR ---
ADMINISTERED SCHEDULED MEDICATIONS. TOLERATED WELL.
[2022-10-01] VITALS: BP 127/72
--- NOTE | 2022-10-01 01:15 | NUR ---
PATIENT LEFT HOME AMA. EXPLAINED THE RISKS BUT STILL INSIST TO GO HOME AMA. Addendum: 10/01/22 at 0133 by Maile Gray RN RN WRONG PATIENT
[2022-10-01 04:00] VITALS: BP 120/55
[2022-10-01] MEDS: ALBUTEROL SULFATE/IPRATROPIU 3 ML SOL IH SCH ×4 (04:35→16:03)
[2022-10-01] MEDS: methylPREDNISolone SS 40 MG/ML VIAL IVP SCH ×2 (05:38→13:00)
--- NOTE | 2022-10-01 07:22 | NUR ---
ENDORSED PATIENT TO DAY SHIFT NURSE ADZE FOR CONTINUITY OF CARE. PATIENT STABLE.
[2022-10-01 07:37] LABS: ALBUMIN 2.5 g/dL (3.4-5.0); ANION GAP 4.1 (8-16); CREATININE 0.5 mg/dL (0.6-1.3); POTASSIUM 4.1 mmol/L (3.5-5.1); TOTAL BILIRUBIN 0.3 mg/dL (0.0-1.0)
[2022-10-01 07:44] LABS: BASOPHILS % (AUTO) 0.4 % (0.0-2.0); HEMOGLOBIN 13.5 g/dL (12.0-16.0); LYMPHOCYTES # (AUTO) 0.9 K/uL (2.5-16.5); LYMPHOCYTES % (AUTO) 9.8 % (20.5-51.1); MEAN CORPUSCULAR HEMOGLOBIN 28 pg (27-31); MEAN CORPUSCULAR HGB CONC 32 g/dL (33-37); MEAN CORPUSCULAR VOLUME 86.2 fL (80-94); MONOCYTES # (AUTO) 0.9 K/uL (0.8-1.0); MONOCYTES % (AUTO) 10.5 % (1.7-9.3); NEUTROPHILS # (AUTO) 6.9 K/uL (1.8-7.7); NEUTROPHILS % (AUTO) 79.3 % (42.2-75.2); PLATELET COUNT (AUTO) 235 K/uL (140-450); RED BLOOD CELL COUNT(AUTO) 4.88 MIL/uL (4.20-5.40); RED CELL DISTRIBUTION WIDTH 15.4 % (11.6-13.7); WHITE BLOOD COUNT (AUTO) 8.7 K/uL (4.8-10.8)
[2022-10-01] MEDS: BUDESONIDE 0.5 MG/2 ML NEBU INH SCH (07:50)
[2022-10-01] MEDS: AZITHROMYCIN 250 MG TAB PO SCH (09:12)
[2022-10-01] MEDS: DOCUSATE SODIUM 100 MG GELCAP PO SCH (09:12)
[2022-10-01] MEDS: NICOTINE TRANSD SYS 14 MG/24 HR PATCH TD SCH (09:12)
[2022-10-01 14:42] VITALS: BP 120/55
[2022-10-01] MEDS ORDERED: ALBU3SOL83 NEB (16:30)
--- NOTE | 2022-10-01 16:56 | NUR ---
PATIENT DISCHARGED HOME WITH HOME OXYGEN AND NEBULIZER. IV ACCESS REMOVED. INSTRUCTIONS GIVEN. ALL PERSONAL BELONGINGS SENT HOME WITH PATIENT.
== END 2022-10-01 16:40 | disposition home or self-care (01) | DRG 139 ==
LOC: MED 12:54 → MTU 14:09
PROVIDERS: ADMIT Hospitalist; ATTEND Hospitalist
DX: J18.9 Pneumonia, unspecified organism (principal); J96.01 Acute respiratory failure with hypoxia; E44.1 Mild protein-calorie malnutrition; J44.1 Chronic obstructive pulmonary disease with (acute) exacerbation; J44.0 Chronic obstructive pulmonary disease with (acute) lower respiratory infection; R65.10 Systemic inflammatory response syndrome (SIRS) of non-infectious origin without acute organ dysfunction; N18.30 Chronic kidney disease, stage 3 unspecified; Z20.822 Contact with and (suspected) exposure to COVID-19; F17.200 Nicotine dependence, unspecified, uncomplicated; G89.29 Other chronic pain; K58.9 Irritable bowel syndrome, unspecified; Z88.5 Allergy status to narcotic agent; Z68.22 Body mass index [BMI] 22.0-22.9, adult
CPT/HCPCS: 36415; 71045; 80053; 80305; 81001; 82803; 83605; 83880; 84484; 85025; 87040; 87086; 93005; 94640; 96365; 96367; 96375; 99291; J0696; J1644; J2920; J2930; J3475; J7613; J7626; J7644

== ENCOUNTER 2023-01-16 06:00 | Inpatient (IN) | payer OTHER ==
[~2023-01-16] VITALS: Ht 152.4 cm; Wt 56.7 kg
[~2023-01-16 06:00] MED LIST changes: +ALBU3SOL83 NEB; +AZIT250T11 PO
[2023-01-16 06:05] VITALS: BP 156/68
--- NOTE | 2023-01-16 06:07 | NUR ---
PT SABR[facility] ALS. TAKEN TO BED 11
--- NOTE | 2023-01-16 06:08 | NUR ---
Patient BIB by ALS from home. C/O abdominal pain x today. Patient reported, had lower abdominal pain after used suppository medication ~ 2-3 hours ETA, lower abdominal pain, 8/10, Per reported, given Zofran 4 mg IV en route. Hx COPD
--- NOTE | 2023-01-16 06:11 | NUR ---
Dr. Kamara examining patient.
[2023-01-16] MEDS ORDERED: ONDANSETRON 4 MG/2 ML VIAL IVP ONE (06:15)
[2023-01-16] MEDS ORDERED: NACL 0.9% 1,000 ML IV ONE (06:15)
[2023-01-16] MEDS ORDERED: MORPHINE SULFATE 4 MG/ML SYR IVP ONE ×2 (06:15→07:50)
--- NOTE | 2023-01-16 06:26 | NUR ---
3x attempt EKG and not success, Patient moved around and states " I am in pain, give me something". Dr. Kamara is aware.
--- NOTE | 2023-01-16 06:45 | NUR ---
Patient taken to CT scan via gurney.
--- NOTE | 2023-01-16 06:54 | NUR ---
PT RETURN FROM CT
--- NOTE | 2023-01-16 06:54 | NUR ---
Patient returned back from CT scan.
--- NOTE | 2023-01-16 07:14 | NUR ---
Report given to WILL Rivera and endorse care of patient.
[2023-01-16 07:20] LABS: BASOPHILS % (AUTO) 0.2 % (0.0-2.0); EOSINOPHILS # (AUTO) 0.1 K/uL (0-0.4); EOSINOPHILS % (AUTO) 0.6 % (0.0-4.0); HEMATOCRIT 46.1 % (36-48); LYMPHOCYTES # (AUTO) 0.8 K/uL (2.5-16.5); LYMPHOCYTES % (AUTO) 6.9 % (20.5-51.1); MEAN CORPUSCULAR HEMOGLOBIN 29 pg (27-31); MEAN CORPUSCULAR HGB CONC 33 g/dL (33-37); MEAN CORPUSCULAR VOLUME 88.7 fL (80-94); MONOCYTES # (AUTO) 0.3 K/uL (0.8-1.0); MONOCYTES % (AUTO) 2.7 % (1.7-9.3); NEUTROPHILS # (AUTO) 10.6 K/uL (1.8-7.7); NEUTROPHILS % (AUTO) 89.6 % (42.2-75.2); PLATELET COUNT (AUTO) 267 K/uL (140-450); RED CELL DISTRIBUTION WIDTH 15.9 % (11.6-13.7); WHITE BLOOD COUNT (AUTO) 11.9 K/uL (4.8-10.8)
[2023-01-16 07:37] LABS: ALBUMIN 3.9 g/dL (3.4-5.0); ANION GAP 9.8 (8-16); CARBON DIOXIDE 33.3 mmol/L (21-32); CREATININE 0.9 mg/dL (0.6-1.3); POTASSIUM 4.1 mmol/L (3.5-5.1); TOTAL BILIRUBIN 0.5 mg/dL (0.0-1.0)
--- NOTE | 2023-01-16 08:13 | NUR ---
ASSUMED PATIENT CARE, CONCUR WITH PRIOR NURSING ASSESSMENTS.
[2023-01-16 09:03] LABS: APPEARANCE,URINE SL CLOUDY (CLEAR); BILIRUBIN,URINE NEGATIVE (NEGATIVE); BLOOD, URINE NEGATIVE (NEGATIVE); COLOR,URINE YELLOW (YELLOW); LEUKOCYTE ESTERASE ,URINE NEGATIVE (NEGATIVE); NITRITE, URINE NEGATIVE (NEGATIVE); PH,URINE 7.5 (5.0-9.0); UGLUCOSE NEGATIVE (NEGATIVE)
[2023-01-16] MEDS ORDERED: ONDANSETRON 4 MG/2 ML VIAL IVP PRN ×2 (10:50→18:30)
[2023-01-16] MEDS ORDERED: LACTATED RINGERS 1,000 ML IV SCH (10:50)
[2023-01-16] MEDS ORDERED: ALBUTEROL 0.083% 2.5 MG/3 ML NEBU INH PRN (10:50)
[2023-01-16] MEDS ORDERED: ACETAMINOPHEN 325 MG TAB PO PRN (10:50)
--- NOTE | 2023-01-16 12:28 | NUR ---
DISPO AND MEDICAL DECISION MAKING, INPATIENT ADMISSION FOR FURTHER MANAGEMENT OF SBO. PATIENT CARE REPORT GIVEN TO JEAN CARLOS, CONTINUITY OF CARE ENDORSED ACCORDINGLY. PATIENT UPDATED OF PLAN OF CARE.
[2023-01-16 12:40] VITALS: BP 124/58
--- NOTE | 2023-01-16 12:40 | NUR ---
RECEIVED PT FROM ER FOR CONTINUITY OF CARE. RECEIVED REPORT FROM MAXIMILIAN SOLIS. TRANSPORTED VIA WHEELCHAIR. PLACED IN BED COMFORTABLY. INITIAL ASSESSMENT DONE. ALERT AND ORIENTED X 4. RESP. EVEN AND UNLABORED. ON CONT. 2L/NC. SKIN INTACT. IV SITE INTACT TO RFA 20G. REMAINS NPO. CONTINENT TO BOWEL AND BLADDER. MRSA SWAB COLLECTED. SEND TO LAB. CALL LIGHT KEPT WITHIN REACH. WILL MONITOR CLOSELY.
--- NOTE | 2023-01-16 12:41 | NUR ---
PER MAXIMILIAN SOLIS, PT PULLED OUT NGT. REATTEMPTED TO REINSERT BUT REFUSED.
--- NOTE | 2023-01-16 12:48 | NUR ---
Patient will be admitted to care of DR GONZALES. Admited to MED-SURG. Will go to room 120B. Belongings list completed. Report to JEAN CARLOS.
[2023-01-16 16:00] VITALS: BP 140/65
--- NOTE | 2023-01-16 16:55 | NUR ---
SEEN BY DR. ROLLINS.
--- NOTE | 2023-01-16 17:28 | NUR ---
PT OFF UNIT.FOR SURGERY. SHAKER REPAIRER BY DALIA SNAFORD RN. REMAINS STABLE.
[2023-01-16] MEDS ORDERED: LIDOCAINE/EPI MPF 1%1:200000 30 ML VIAL INJ ONE (17:43)
[2023-01-16] MEDS ORDERED: ceFAZolin 2,000 MG VIAL ONE (17:43)
[2023-01-16] MEDS ORDERED: BUPIVACAINE-MPF 0.25% 30 ML VIAL INJ ONE (17:44)
[2023-01-16] MEDS ORDERED: PROPOFOL 200 MG/20 ML VIAL IV ONE ×2 (18:00→18:34)
[2023-01-16] MEDS ORDERED: LABETALOL 100 MG/20 ML VIAL ONE ×2 (18:00→20:24)
[2023-01-16] MEDS ORDERED: ROCURONIUM 50 MG/5 ML VIAL IV ONE ×2 (18:00→18:34)
[2023-01-16] MEDS ORDERED: HYDROmorphone PFS 2 MG/ML SYR ONE ×3 (18:00→20:27)
[2023-01-16] MEDS ORDERED: ONDANSETRON 4 MG/2 ML VIAL ONE ×2 (18:00→18:34)
[2023-01-16] MEDS ORDERED: ACETYLCYSTEINE IV PER PHARMACY 1 EA MISC MC ONE (18:00)
[2023-01-16] MEDS ORDERED: DEXAMETHASONE 4 MG/ML VIAL ONE ×2 (18:00→18:34)
[2023-01-16] MEDS ORDERED: SUGAMMADEX SODIUM 200 MG/2 ML VIAL IV ONE ×2 (18:00→20:10)
[2023-01-16] MEDS ORDERED: ceFAZolin 1,000 MG VIAL ONE ×2 (18:02→21:14)
[2023-01-16] MEDS ORDERED: SUCCINYLCHOLINE CHLORIDE 200 MG/10 ML VIAL IVP ONE (18:34)
[2023-01-16] MEDS ORDERED: fentaNYL citrate 0.05 MG/ML VIAL ONE (18:46)
--- NOTE | 2023-01-16 19:00 | NUR ---
BEDSIDE REPORT GIVEN TO NIGHT NURSE VARGHESE FOR CONTINUITY OF CARE. CURRENTLY PT OFF UNIT FOR SURGERY.
--- NOTE | 2023-01-16 19:05 | NUR ---
RECEIVED REPORT FROM BURTON NURSE. PT CURRENTLY IN OR.
[2023-01-16] MEDS ORDERED: ACETAMINOPHEN 100 ML IV ONE (19:37)
[2023-01-16] MEDS: HYDROmorphone 1 MG/ML AMP IVP PRN ×4 (20:25→20:55)
[2023-01-16 21:00] VITALS: BP 136/67
[2023-01-16] MEDS: POTASSIUM CHL 20MEQ/D5-NS 1,000 ML IV SCH (21:00)
--- NOTE | 2023-01-16 21:00 | NUR ---
RECEIVED PT FROM OR. PATIENT IS AWAKE,ALERT AND ORIENTED. PAIN MEDICATION GIVEN PRIOR TO TRANSFER TO [facility]. NO ACUTE RESPIRATORY DISTRESS NOTED. ABDOMINAL DRESSING CDI. NGT RO THE RIGHT NARE IN PLACE, ATTACHED TO LOW INTERMITTENT SUCTION BY OR NURSE ORDERED. FLOWER CATHETER DRAINING YELLOW URINE BY GRAVITY. ON BEDREST WITH BILATERAL SCD'S ON, SAFETY PRECAUTIONS IN PLACE, CALL LIGHT GIVEN TO PT, INSTRUCTED TO CALL IF ASSISTANCE IS NEEDED, PT VERBALLY ACKNOWLEDGED. DAUGHTER AT THE BEDSIDE.
[2023-01-17] VITALS: BP 119/51
--- NOTE | 2023-01-17 | NUR ---
VITAL SIGNS TAKEN AND DOCUMENTED, VS WITHIN NORMAL LIMITS. PT ASLEEP. NO S/SX OF PAIN NOR DISCOMFORT. NOTED BROWNISH OUTPUT FROM NGT.
[2023-01-17] MEDS ORDERED: ceFAZolin 1,000 MG VIAL ONE (03:39)
[2023-01-17 04:00] VITALS: BP 128/59
[2023-01-17] MEDS: MORPHINE SULFATE 2 MG/ML SYR IVP PRN ×4 (05:09→21:05)
--- NOTE | 2023-01-17 05:09 | NUR ---
PATIENT COMPLAINED OF PAIN, MEDICATED ORDERED. REPOSITIONED AND MADE COMFORTABLE. CALL LIGHT PLACED WITHIN REACH.
--- NOTE | 2023-01-17 06:09 | NUR ---
RE-ASSESSED FOR PAIN, PT CURRENTLY ASLEEP. NO S/SX OF PAIN NOR DISCOMFORT.
--- NOTE | 2023-01-17 07:18 | NUR ---
RECEIVED REPORT FROM LOUIS KWONG DISCUSSED. PT IS ASLEEP IN BED ON 2LNC WITH CHEST RISING AND FALLING CONNECTED TO PULSE OX SHOWING 94%. PT HAS A NG TUBE CONNECTED TO LOW INTERMITTENT SUCTION, MINIMAL OUTPUT NOTED. PT HAS FLOWER DRAINING CLEAR YELLOW URINE. PT CONNECTED TO SCDS. PT S/P EXPLORATORY LAP WITH LARGE ABD BANDAGE. PT ON TELE MONITOR. ALL SAFETY MEASURES IN PLACE, CALL LIGHT WITHIN REACH.
--- NOTE | 2023-01-17 07:47 | NUR ---
RECEIVED REPORT FROM PPAP COORDINATOR NURSE. POC DISCUSSED. PT CURRENTLY RESTING WITH CHEST RISING AND FALLING. PT RECEIVING 2L OXYGEN NASAL CANULA. NO ACUTE S/S OF DISTRESS. ALL SAFETY MEASURES IN PLACE. CALL LIGHT WITHIN REACH.
[2023-01-17 07:49] LABS: BASOPHILS # (AUTO) 0.1 K/uL (0.00-0.22); BASOPHILS % (AUTO) 0.4 % (0.0-2.0); HEMATOCRIT 38.9 % (36-48); HEMOGLOBIN 12.8 g/dL (12.0-16.0); LYMPHOCYTES # (AUTO) 0.9 K/uL (2.5-16.5); LYMPHOCYTES % (AUTO) 6.6 % (20.5-51.1); MEAN CORPUSCULAR HEMOGLOBIN 29 pg (27-31); MEAN CORPUSCULAR HGB CONC 33 g/dL (33-37); MONOCYTES % (AUTO) 7.3 % (1.7-9.3); NEUTROPHILS # (AUTO) 11.9 K/uL (1.8-7.7); NEUTROPHILS % (AUTO) 85.7 % (42.2-75.2); PLATELET COUNT (AUTO) 242 K/uL (140-450); RED BLOOD CELL COUNT(AUTO) 4.37 MIL/uL (4.20-5.40); RED CELL DISTRIBUTION WIDTH 15.9 % (11.6-13.7); WHITE BLOOD COUNT (AUTO) 13.8 K/uL (4.8-10.8)
[2023-01-17 08:00] VITALS: BP 136/67
[2023-01-17 08:08] LABS: ALBUMIN 2.6 g/dL (3.4-5.0); ANION GAP 7.9 (8-16); CARBON DIOXIDE 31.1 mmol/L (21-32); CREATININE 0.7 mg/dL (0.6-1.3); MAGNESIUM 1.5 mg/dL (1.8-2.4); TOTAL BILIRUBIN 0.3 mg/dL (0.0-1.0)
--- NOTE | 2023-01-17 09:43 | NUR ---
PAGE DR GONZALES REGARDING PT REQUEST TO REMOVE NG TUBE AND NEW DIET ORDER.
[2023-01-17] MEDS: ENOXAPARIN 40 MG/0.4 ML SYR SUBQ SCH (09:53)
[2023-01-17] MEDS ORDERED: LORazepam 2 MG/ML VIAL IM/IVP PRN (10:10)
[2023-01-17] MEDS: POTASSIUM CHL 20MEQ/D5-NS 1,000 ML IV SCH ×2 (10:16→23:10)
[2023-01-17] MEDS: LORazepam 2 MG/ML VIAL IM/IVP PRN ×3 (10:19→23:19)
--- NOTE | 2023-01-17 10:19 | NUR ---
PER DR ROLLINS, PT WILL KEEP THE NGT TO LOW INTERMITTENT AND NPO TILL 01/18/22 AM. PT REPORTS SEVERE ANXIETY WITH NG TUBE IN NOSE, MD ORDERED PRN ATIVAN. PT TOLERATED ADMINISTRATION
[2023-01-17 12:00] VITALS: BP 149/70
--- NOTE | 2023-01-17 12:28 | NUR ---
PRN PAIN MEDICATION ADMINISTERED PER MD ORDER, BP 139/73 HEART RATE 88
--- NOTE | 2023-01-17 14:40 | NUR ---
PT ENDORSED TO TIM RN FOR CONTINUITY OF CARE IN STABLE CONDITION, POC DISCUSSED. ALL QUESTIONS ANSWERED. PT ASLEEP IN BED CONNECTED TO PULSE OX AND TELE MONITOR. NO ACUTE S/S OF DISTRESS.
--- NOTE | 2023-01-17 14:41 | NUR ---
RECEIVED PATIENT FROM NURSE OF SAME SHIFT. PATIENT SEEN AWAKE. CARE AND MONITORING RESUMED
[2023-01-17 16:00] VITALS: BP 148/73
[2023-01-17] MEDS ORDERED: MAG SULF 2000 MG/WATER PREMIX 50 ML IV ONE (16:55)
--- NOTE | 2023-01-17 19:30 | NUR ---
ENDORSED PATIENT TO PM NURSE FOR CONTINUATION OF CARE.
--- NOTE | 2023-01-17 19:31 | NUR ---
RECEIVED PT FROM MORNING SHIFT NURSE. PT IS AOX4, AMBULATORY WITH ASSIST, AMBLE VERBALIZE NEEDS AND ABLE TO FOLLOW COMMANDS. PT HAS 2L NC, NGT, FLOWER CATHETER AND ON NPO DIET. PT HAS IV ON RIGHT FOREARM GAUGE 20 RUNNING WITH MAG SULFATE AT 25ML/HR. PT HAS LARGE SURGICAL WOUND ON ABDOMEN. PT DENIES PAIN AT THIS TIME. NO S/S OF RESPIRATORY DISTRESS NOTED. ALL SAFETY MEASURES IMPLEMENTED. BED IN LOW POSITION, BED WHEELS ON LOCK AND CALL LIGHT WITHIN REACH.
[2023-01-17 20:00] VITALS: BP 152/79
--- NOTE | 2023-01-17 21:05 | NUR ---
PRRN PAIN MEDICATION WAS GIVEN TO PT DUE TO ABDOMINAL PAIN WITH PAIN SCALE OF 6/10. ALL SAFETY MEASURES IMPLEMENTED. BED IN LOW POSITION, BED WHEELS ON LOCK AND CALL LIGHT WITHIN REACH.
--- NOTE | 2023-01-17 23:19 | NUR ---
PT WAS GIVEN ATIVAN DUE TO AGITATION. ALL SAFETY MEASURES IMPLEMENTED. BED IN LOW POSITION, BED WHEELS ON LOCK AND CALL LIGHT WITHIN REACH.
[2023-01-18] VITALS: BP 156/68
--- NOTE | 2023-01-18 02:00 | NUR ---
PT IS ON SLEEP. CHEST RISE AND FALL SYMMETRICALLY NOTED. RESPIRATION IS EVEN AND UNLABORED. ALL SAFETY MEASURES IMPLEMENTED. LAN DIN LOW POSITION, BED WHEELS ON LOCK AND CALL LIGHT WITHIN REACH.
[2023-01-18] MEDS: MORPHINE SULFATE 2 MG/ML SYR IVP PRN ×4 (02:43→21:01)
--- NOTE | 2023-01-18 03:00 | NUR ---
PT WAS GIVEN PRN PAIN MEDICATION BY VARGHESE CM,SO DUE TO BACK PAIN AT 0243. RN IS ON BREAK THAT TIME.
[2023-01-18 04:00] VITALS: BP 148/76
[2023-01-18] MEDS: LORazepam 2 MG/ML VIAL IM/IVP PRN (05:25)
--- NOTE | 2023-01-18 05:25 | NUR ---
PT WAS GIVEN ATIVAN DUE TO AGITATION. ALL SAFETY MEASURES IMPLEMENTED. BED IN LOW POSITION, BED WHEELS ON LOCK AND CALL LIGHT WITHIN REACH.
[2023-01-18] MEDS: POTASSIUM CHL 20MEQ/D5-NS 1,000 ML IV SCH ×2 (06:27→12:30)
[2023-01-18 06:32] LABS: BASOPHILS % (AUTO) 0.4 % (0.0-2.0); EOSINOPHILS # (AUTO) 0.1 K/uL (0-0.4); EOSINOPHILS % (AUTO) 0.5 % (0.0-4.0); LYMPHOCYTES # (AUTO) 1.1 K/uL (2.5-16.5); LYMPHOCYTES % (AUTO) 10.8 % (20.5-51.1); MEAN CORPUSCULAR HEMOGLOBIN 29 pg (27-31); MEAN CORPUSCULAR HGB CONC 34 g/dL (33-37); MONOCYTES # (AUTO) 0.9 K/uL (0.8-1.0); MONOCYTES % (AUTO) 8.1 % (1.7-9.3); NEUTROPHILS # (AUTO) 8.5 K/uL (1.8-7.7); NEUTROPHILS % (AUTO) 80.2 % (42.2-75.2); PLATELET COUNT (AUTO) 216 K/uL (140-450); RED BLOOD CELL COUNT(AUTO) 4.43 MIL/uL (4.20-5.40); RED CELL DISTRIBUTION WIDTH 14.8 % (11.6-13.7); WHITE BLOOD COUNT (AUTO) 10.6 K/uL (4.8-10.8)
[2023-01-18 07:02] LABS: ALBUMIN 2.7 g/dL (3.4-5.0); ANION GAP 7.9 (8-16); CARBON DIOXIDE 32.8 mmol/L (21-32); CREATININE 0.6 mg/dL (0.6-1.3); POTASSIUM 3.7 mmol/L (3.5-5.1); TOTAL BILIRUBIN 0.5 mg/dL (0.0-1.0)
--- NOTE | 2023-01-18 07:18 | NUR ---
PT IS STABLE. ENDORSED PT TO MORNING SHIFT NURSE FOR CONTINUITY OF CARE.
--- NOTE | 2023-01-18 07:20 | NUR ---
RECEIVED PT FROM PM NURSE FOR CONTINUATION OF CARE.
[2023-01-18 08:00] VITALS: BP 157/81
--- NOTE | 2023-01-18 08:44 | NUR ---
PATIENT HAS BEEN SCREENED AND CATEGORIZED MODERATE NUTRITION RISK. PATIENT WILL BE SEEN WITHIN 3-5 DAYS OF ADMISSION. 01/16/23-01/21/[address]
[2023-01-18] MEDS: ENOXAPARIN 40 MG/0.4 ML SYR SUBQ SCH (09:34)
[2023-01-18 12:00] VITALS: BP 155/85
[2023-01-18 16:00] VITALS: BP 148/73
--- NOTE | 2023-01-18 16:26 | NUR ---
01/18/23 RD INITIAL ASSESSMENT COMPLETED.PLEASE REFER TO NUTRITION ASSESSMENT UNDER CARE ACTIVITY FOR ESTIMATED NUTRITIONAL NEEDS. 1.CONTINUE CLEAR LIQUID DIET TOLERATED. WHEN/IF MEDICALLY APPROPRIATE, RECOMMEND GRADUALLY ADVANCING TO REGULAR DIET. 2.RECOMMEND PROSOURCE BID TO PROMOTE WOUND HEALING. 3.MONITOR PO INTAKE 4.RD TO FOLLOW-UP 3-5 DAYS, MODERATE RISK [address] R[address]
--- NOTE | 2023-01-18 19:20 | NUR ---
ENDORSED PATIENT TO PM NRSE FOR CONTINUATION OF CARE.
--- NOTE | 2023-01-18 19:30 | NUR ---
RECEIVED PATIENT LYING ON THE BED, FAMILY AT BEDSIDE, IN NO ACUTE DISTRESS, PATIENT ON 2LPM NC, IV SITE ON RIGHT FOREARM G20, PATENT AND INTACT. CALL LIGHT WITHIN REACH.
[2023-01-18 20:00] VITALS: BP 139/74
--- NOTE | 2023-01-18 21:01 | NUR ---
PATIENT C/O 7/10 PAIN ON MID ABDOMEN SURGICAL INCISION SITE, GIVEN PRN MORPHINE, BP 139/74. SURGICAL INCISION HAS 25 INTACT SAMUEL, WILL CONTINUE TO MONITOR THE PATIENT.
--- NOTE | 2023-01-18 22:01 | NUR ---
CHECKED ON PATIENT, PATIENT IS ASLEEP, BREATHING EVEN AND NON LABORED. CALL LIGHT WITHIN REACH.
[2023-01-19] VITALS: BP 134/75
[2023-01-19] MEDS: POTASSIUM CHL 20MEQ/D5-NS 1,000 ML IV SCH ×3 (00:56→19:20)
[2023-01-19] MEDS: MORPHINE SULFATE 2 MG/ML SYR IVP PRN ×2 (03:44→10:35)
--- NOTE | 2023-01-19 03:44 | NUR ---
PRN MORPHINE GIVEN ORDERED, PATIENT C/O 6/10 PAIN ON MID ABDOMEN SURGICAL INCISION, BP 152/77MMHG. ALL SAFETY MEASURES IN PLACE.
[2023-01-19 04:00] VITALS: BP 152/77
[2023-01-19 06:31] LABS: BASOPHILS # (AUTO) 0.1 K/uL (0.00-0.22); BASOPHILS % (AUTO) 0.6 % (0.0-2.0); EOSINOPHILS # (AUTO) 0.2 K/uL (0-0.4); EOSINOPHILS % (AUTO) 1.9 % (0.0-4.0); HEMATOCRIT 36.6 % (36-48); HEMOGLOBIN 12.2 g/dL (12.0-16.0); LYMPHOCYTES # (AUTO) 1.1 K/uL (2.5-16.5); LYMPHOCYTES % (AUTO) 12.4 % (20.5-51.1); MEAN CORPUSCULAR HEMOGLOBIN 29 pg (27-31); MEAN CORPUSCULAR HGB CONC 33 g/dL (33-37); MEAN CORPUSCULAR VOLUME 88.1 fL (80-94); MONOCYTES # (AUTO) 0.9 K/uL (0.8-1.0); MONOCYTES % (AUTO) 9.8 % (1.7-9.3); NEUTROPHILS # (AUTO) 6.9 K/uL (1.8-7.7); NEUTROPHILS % (AUTO) 75.3 % (42.2-75.2); PLATELET COUNT (AUTO) 232 K/uL (140-450); RED BLOOD CELL COUNT(AUTO) 4.15 MIL/uL (4.20-5.40); RED CELL DISTRIBUTION WIDTH 13.8 % (11.6-13.7); WHITE BLOOD COUNT (AUTO) 9.1 K/uL (4.8-10.8)
--- NOTE | 2023-01-19 07:25 | NUR ---
ENDORSED PATIENT TO DAY NURSE FOR CONTINUITY OF CARE. PATIENT IN STABLE CONDITION.
--- NOTE | 2023-01-19 07:26 | NUR ---
RECEIVED PT FROM EMERGENCY VEHICLE DRIVER NURSE FOR CONTINUITY OF CARE. PT SLEEPING, VISIBLE CHEST RISE/FALL. RESPIRATIONS EVEN AND UNLABORED ON 2L O2 VIA NC. IV ON R F/A 20G. SKIN WARM AND DRY. NO DISTRESS NOTED. CALL LIGHT WITHIN REACH. ALL SAFETY PRECAUTIONS IN PLACE.
[2023-01-19 08:00] VITALS: BP 126/64
[2023-01-19] MEDS: ENOXAPARIN 40 MG/0.4 ML SYR SUBQ SCH (08:17)
--- NOTE | 2023-01-19 09:50 | NUR ---
S/P EX LAP + LYSIS ADHESIONS, REPAIR LOWER ABDOMINAL/SUPRAPUBIC VENTRAL HERNIAS BY . MID ABD. SURGICAL WOUND 25 SAMUEL DRY CLEAN ,NO S/S OF WOUND DEHISCENCE. DRY COMPOSITE DRESSING AND ABD BINDER APPLIED. PT. OOB AMBULATE TO BR. AAX4. POC DISCUSSED. PT VERBALIZES UNDERSTANDING. POC DISCUSSED WITH PRIMARY NURSE KULDEEP.
[2023-01-19 10:20] LABS: ANION GAP 13.3 (8-16); CARBON DIOXIDE 28.4 mmol/L (21-32); CREATININE 0.6 mg/dL (0.6-1.3); POTASSIUM 3.7 mmol/L (3.5-5.1)
[2023-01-19 12:00] VITALS: BP 140/77
--- NOTE | 2023-01-19 12:10 | NUR ---
DC PLANNING ASSESSMENT COMPLETE PLEASE REFER TO ASSESSMENT FOR ADDITIONAL DETAILS SW MET WITH PT AT BEDSIDE TO COMPLETE ASSESSMENT, PT DENIES CHANGES SINCE LAST VISIT. SW MET WITH PT AT BEDSIDE TO COMPLETE ASSESSMENT. PT REPORTS RESIDING IN A MOBILE HOME WITH HER DAUGHTER AND GRANDDAUGHTER, AT [address] [facility]. [address] [address]. PT IDENTIFIED JOSÉ LUIS CUMMINGS, DAUGHTER, EMERGENCY CONTACT. PT DENIED AD IN PLACE AND ACCEPTED AD OFFERED BY SW. PT REPORTS MEETING WITH PCP REGULARLY, LAST VISIT; SEP 2022 . PT REPORTS AN UPCOMING PCP APPT ON FEBRUARY 02. SW SPOKE TO PT ABOUT IMPORTANCE OF FOLLOW UP CARE, PT RECEPTIVE AND PROVIDED SW WITH PERMISSION TO SCHEDULE FOLLOW UP APPT WITH PCP. PT REPORTS MEDICATION COMPLIANCE AND REPORTS RECEIVING MEDICATION FROM [facility] [address] IN [place], WHEN NEEDED. PT DENIES MH HX. PT REPORTS SUBSTANCE USE HX, SUBSTANCE OF USE, NORCO. PT REPORTS BEING SOBER FOR 2 YRS. PT REPORTS SUBOXONE USE OF 1/4 PILL, 2X A DAY. PT REPORTS CIGARETTE USE AND REPORTS SHES WORKING WITH PCP IN CIGARETTE CESSATION. PT DENIES HX OF DIABETES, DIALYSIS, SNF, HH. PT REPORTS DC PLAN IS TO RETURN HOME WITH DAUGHTER PROVIDING TRANSPORTATION, WHEN STABLE. Addendum: 01/19/23 at 1211 by Andrew CHRISTENSEN Amended: Links added.
--- NOTE | 2023-01-19 12:11 | NUR ---
DC PLANN[age] YRS OLD FEMALE PATIENT WAS ADMITTED FROM HOME WITH A DX OF SBO. PATIENT HAS A HX OF COPD ON HOME O2 GASTRIC BYPASS, INGUINAL HERNIA. DR ROLLINS PERFORMED EXP LAP ADHESIVE BANDS X2 ON 01/16/23. ADMINISTERED IV MORPHINE. PATIENT TOLERATED THE PROCEDURE ADVANCED DIET TO FULL LIQUID , ENCOURAGED AMBULATION. DC PLAN TO GO HOME WHEN STABLE CM TO FOLLOW Addendum: 01/20/23 at 1229 by Sarahy Yañez RN DC PLANNING TOLERATED DIET, TOLERATED PAIN, AMBULATE TO BATHROOM AND HALLWAY. POSSIBLE DC TODAY AND F/U WITH DR ROLLINS'S OFFICE. AWAITING FOR THE ATTENDING. CM TO FOLLOW
[2023-01-19] MEDS: COMPOSITE DRESSING TP SCH (13:01)
--- NOTE | 2023-01-19 13:28 | NUR ---
PATIENT AMBULATING IN HALLWAY ALONGSIDE MATERIAL CHASER. PATIENT GAIT STABLE.
[2023-01-19] MEDS ORDERED: MORPHINE SULFATE 2 MG/ML SYR IVP PRN (14:45)
[2023-01-19] MEDS ORDERED: buprenorphine HCL 2 MG sublingual tab SL SCH (15:00)
[2023-01-19 16:00] VITALS: BP 142/75
--- NOTE | 2023-01-19 16:10 | NUR ---
PATIENT WALKED AROUND UNIT WITH HER NURSE - WAS ABLE TO GET BACK INTO HER BED- OXYGEN CANNULA IN PLACE - PATIENT STATED SHE HAS OXYGEN AT HOME.
--- NOTE | 2023-01-19 19:10 | NUR ---
ENDORSED PT TO MOLASSES COLORING OPERATOR NURSE FOR CONTINUITY OF CARE. PT STABLE.
--- NOTE | 2023-01-19 19:15 | NUR ---
RECEIVED PT IN BED AWAKE, ALERT AND ORIENTED X 4. DENIES PAIN. ABDOMINAL DRESSING CLEAN DRY AND INTACT. NO ACUTE RESPIRATORY DISTRESS. IVF INFUSING WELL ORDERED. SKIN WARM AND DRY TO TOUCH. SAFETY PRECAUTIONS IN PLACE, CALL LIGHT WITHIN REACH. Addendum: 01/19/23 at 2040 by Beth Cortez RN STOPPED IVF ENDORSED BY AM NURSE, IVF ONLY TO BE GIVEN DURING DAY TIME.
[2023-01-19 19:53] VITALS: BP 128/60
--- NOTE | 2023-01-19 23:00 | NUR ---
PATIENT REQUESTED TO AMBULATE IN THE HALLWAY, WALKED AROUND THE STATION 2X. Addendum: 01/19/23 at 2320 by Beth Cortez RN PATIENT TOLERATED WELL.
--- NOTE | 2023-01-19 23:11 | NUR ---
MEDICATED FOR PAIN ORDERED. MADE COMFORTABLE IN BED, CALL LIGHT PLACED WITHIN REACH.
[2023-01-20] VITALS: BP 141/61
--- NOTE | 2023-01-20 00:02 | NUR ---
VITAL SIGNS TAKEN AND DOCUMENTED, VS STABLE. DENIES PAIN AT THIS TIME. CALL LIGHT WITHIN REACH.
[2023-01-20 04:00] VITALS: BP 134/62
--- NOTE | 2023-01-20 06:19 | NUR ---
PATIENT IS ASLEEP. NO S/SX OF PAIN NOR DISCOMFORT. ALL NEEDS ATTENDED TO. SAFETY PRECAUTIONS MAINTAINED DURING THE SHIFT, CALL LIGHT WITHIN REACH.
[2023-01-20 07:10] LABS: ANION GAP 6.4 (8-16); CARBON DIOXIDE 35.4 mmol/L (21-32); CREATININE 0.6 mg/dL (0.6-1.3); POTASSIUM 3.8 mmol/L (3.5-5.1)
--- NOTE | 2023-01-20 07:10 | NUR ---
ASSUMED CONTINUITY OF CARE. INITIAL ASSESSMENT DONE. KEEP COMFORTABLE ON BED. CALL LIGHT WITHIN REACH.
[2023-01-20 07:24] LABS: BASOPHILS % (AUTO) 0.5 % (0.0-2.0); EOSINOPHILS # (AUTO) 0.3 K/uL (0-0.4); EOSINOPHILS % (AUTO) 4.2 % (0.0-4.0); HEMATOCRIT 36.1 % (36-48); HEMOGLOBIN 11.9 g/dL (12.0-16.0); LYMPHOCYTES # (AUTO) 1.4 K/uL (2.5-16.5); LYMPHOCYTES % (AUTO) 17.2 % (20.5-51.1); MEAN CORPUSCULAR HEMOGLOBIN 29 pg (27-31); MEAN CORPUSCULAR HGB CONC 33 g/dL (33-37); MEAN CORPUSCULAR VOLUME 88.4 fL (80-94); MONOCYTES # (AUTO) 0.8 K/uL (0.8-1.0); MONOCYTES % (AUTO) 10.5 % (1.7-9.3); NEUTROPHILS # (AUTO) 5.4 K/uL (1.8-7.7); NEUTROPHILS % (AUTO) 67.6 % (42.2-75.2); PLATELET COUNT (AUTO) 268 K/uL (140-450); RED BLOOD CELL COUNT(AUTO) 4.08 MIL/uL (4.20-5.40); RED CELL DISTRIBUTION WIDTH 13.8 % (11.6-13.7); WHITE BLOOD COUNT (AUTO) 7.9 K/uL (4.8-10.8)
[2023-01-20 08:00] VITALS: BP 106/66
--- NOTE | 2023-01-20 08:00 | NUR ---
Patient's Plan of Care was discussed and reviewed with MUD PLANT OPERATOR: MUNA
--- NOTE | 2023-01-20 08:35 | NUR ---
PT IS ASLEEP. NO RESPIRATORY DISTRESS NOTED. PT ON OXYGEN 2L NC, O2 SATURATION WAS 98%.
[2023-01-20] MEDS ORDERED: POLYETHYLENE GLYCOL 17 GM/PKT PO SCH (09:00)
[2023-01-20] MEDS: ENOXAPARIN 40 MG/0.4 ML SYR SUBQ SCH (09:02)
--- NOTE | 2023-01-20 09:25 | NUR ---
INSERTED IV ON RIGHT FOREARM GAUGE #20. TOLERATED WELL. REMOVED IV ON RIGHT AC GAUGE #20 DUE TO OCCLUSION.
--- NOTE | 2023-01-20 09:47 | NUR ---
AMBULATES ON THE HALLWAY ([facility] NURSE STATION) WITHOUT ASSISTANCE. TOLERATED WELL. NO C/O PAIN. NO SOB, NOTED.
[2023-01-20 12:00] VITALS: BP 103/64
[2023-01-20] MEDS: POTASSIUM CHL 20MEQ/D5-NS 1,000 ML IV SCH (12:00)
--- NOTE | 2023-01-20 13:00 | NUR ---
WOUND CARE DONE ON MID ABD INCISION. TOLERATED WELL. NO C/O PAIN.
[2023-01-20] MEDS: COMPOSITE DRESSING TP SCH (13:53)
[2023-01-20] MEDS ORDERED: DOCU-299 PO (15:54)
[2023-01-20 16:00] VITALS: BP 125/68
--- NOTE | 2023-01-20 18:30 | NUR ---
REFUSED TO TAKE PICTURE OF ABD INCISION FOR DISCHARGE PROCESS.
--- NOTE | 2023-01-20 18:50 | NUR ---
D/C HOME VIA WHEELCHAIR. IN STABLE CONDITION. INFORMED RESOURCE NURSE JANE VALDIVIA.
--- NOTE | 2023-01-21 10:42 | NUR ---
CALLED [facility] LOCATED AT [address] [id number]. SPOKE WITH MINO WHO WAS ABLE TO HELP SCHEDULED A FOLLOW UP APPOINTMENT FOR AT 1400. CALLED PATIENT WHO DIDN'T ANSWER BUT I WAS ABLE TO LEAVE MESSAGE ON VOICE MAIL.
== END 2023-01-20 18:50 | disposition home or self-care (01) | DRG 227 ==
LOC: MED 06:00 → MTU 10:54
PROVIDERS: ADMIT Internal Medicine; ATTEND Internal Medicine
PROC: 0WQF0ZZ Repair Abdominal Wall, Open Approach (ICD-10-PCS; principal; 2023-01-16 17:45)
DX: K43.6 Other and unspecified ventral hernia with obstruction, without gangrene (principal); K56.50 Intestinal adhesions [bands], unspecified as to partial versus complete obstruction; R65.10 Systemic inflammatory response syndrome (SIRS) of non-infectious origin without acute organ dysfunction; J44.9 Chronic obstructive pulmonary disease, unspecified; K59.00 Constipation, unspecified; Z20.822 Contact with and (suspected) exposure to COVID-19; F17.210 Nicotine dependence, cigarettes, uncomplicated; Z90.710 Acquired absence of both cervix and uterus; Z98.84 Bariatric surgery status
CPT/HCPCS: 36415; 80048; 80053; 81003; 83690; 83735; 84484; 85025; 87081; 93005; 96361; 96374; 96375; 96376; 99285; J0330; J0690; J1100; J1170; J1650; J2001; J2060; J2270; J2405; J2704; J3010; J3475; J3490; J7060

== ENCOUNTER 2023-01-31 21:37 | Emergency (ER) | payer OTHER ==
[~2023-01-31] VITALS: Ht 165.1 cm; Wt 54.4 kg
[~2023-01-31 21:37] MED LIST changes: +DOCU-299 PO
[2023-01-31 21:54] VITALS: BP 119/72
[2023-01-31 23:20] LABS: BASOPHILS # (AUTO) 0.1 K/uL (0.00-0.22); BASOPHILS % (AUTO) 1.3 % (0.0-2.0); EOSINOPHILS # (AUTO) 0.2 K/uL (0-0.4); EOSINOPHILS % (AUTO) 3.2 % (0.0-4.0); HEMATOCRIT 38.6 % (36-48); HEMOGLOBIN 12.8 g/dL (12.0-16.0); LYMPHOCYTES # (AUTO) 1.7 K/uL (2.5-16.5); LYMPHOCYTES % (AUTO) 25.4 % (20.5-51.1); MEAN CORPUSCULAR HEMOGLOBIN 30 pg (27-31); MEAN CORPUSCULAR HGB CONC 33 g/dL (33-37); MEAN CORPUSCULAR VOLUME 89.5 fL (80-94); MONOCYTES # (AUTO) 0.6 K/uL (0.8-1.0); MONOCYTES % (AUTO) 8.5 % (1.7-9.3); NEUTROPHILS # (AUTO) 4.1 K/uL (1.8-7.7); NEUTROPHILS % (AUTO) 61.6 % (42.2-75.2); PLATELET COUNT (AUTO) 396 K/uL (140-450); RED BLOOD CELL COUNT(AUTO) 4.32 MIL/uL (4.20-5.40); RED CELL DISTRIBUTION WIDTH 13.2 % (11.6-13.7); WHITE BLOOD COUNT (AUTO) 6.7 K/uL (4.8-10.8)
[2023-01-31 23:33] LABS: ANION GAP 9.8 (8-16); CARBON DIOXIDE 34.8 mmol/L (21-32); CREATININE 0.7 mg/dL (0.6-1.3); POTASSIUM 4.6 mmol/L (3.5-5.1)
--- NOTE | 2023-02-01 00:01 | NUR ---
PT TO CT
--- NOTE | 2023-02-01 02:17 | NUR ---
STILL WAITING FOR CT RESULT , PT UPDATED
[2023-02-01] MEDS ORDERED: CLIN300C2 PO (03:40)
[2023-02-01 03:49] VITALS: BP 119/72
--- NOTE | 2023-02-01 03:49 | NUR ---
Patient discharged with v/s stable. Written and verbal after care instructions given and explained. New rx clindamycin. Patient verbalized understanding. Ambulatory with steady gait. All questions addressed prior to discharge. Advised to follow up with PMD.
== END 2023-02-01 03:48 | disposition home or self-care (01) ==
LOC: MED 21:37
DX: L02.11 Cutaneous abscess of neck (principal); J44.9 Chronic obstructive pulmonary disease, unspecified; J45.909 Unspecified asthma, uncomplicated; Z79.899 Other long term (current) drug therapy
CPT/HCPCS: 36415; 74177; 80048; 85025; 99285; Q9967